=== PATIENT | female | born 1950 | race Caucasian/White ===

== ENCOUNTER 2016-06-13 19:35 | Emergency (ER) | payer OTHER ==
[~2016-06-13] VITALS: Ht 160 cm; Wt 140.6 kg
[2016-06-13] MEDS ORDERED: OXYCODONE/APAP 10/325 TABLET. PO ONE (20:15)
[2016-06-13 21:02] VITALS: BP 129/67
[2016-06-13] MEDS ORDERED: OXYC-323 PO (22:32)
--- NOTE | 2016-06-13 22:32 | PHYS DOC ---
Past Medical History Past Medical History: Arthritis, Diabetes-Type II, High Cholesterol, Hypertension Past Surgical History: Knee Replacement, Tonsillectomy, Tubal ligation Additional Information: 1/2 PACK/DAY Alcohol Use: None Drug Use: None Adult General Chief Complaint Chief Complaint: MECHANICAL FALL HPI HPI Patient is a 65 year old female who presents to the ER today secondary to falling down while she was sitting on the toilet. Patient reports after falling down she was not able to get up on her own was on the ground for approximately 4 hours until family came to help her up. Patient reports this occurred approximately 2:30 PM. Patient denies any trauma to her head. Patient has any loss of consciousness. Patient denies any neck pain or abdominal pain. Patient has any dizziness presyncope or chest pain. She reports that she was on the toilet trying to twist off the toilet and twisted the wrong way and falling down. Patient currently is complaining of left knee pain and left ankle pain and left hip pain. Patient has a history of DJD, right total knee repair, hypertension diabetes and high cholesterol. Patient denies any liver longer kidney problems. Patient has no history of coronary artery disease or strokes in the past. Patient does smoke, no alcohol, no surgeries in the past. Patient is not allergic to any medications. 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 Patient reports just do a lot of walking in the office is requesting time off from work. She denies being on any anticoagulants. Patient's physical exam the ER is significant for tenderness to palpation to her left knee. Tenderness to palpation in her left ankle. Tenderness to palpation to her left hip. Patient has no C-spine T-spine or L-spine tenderness to palpation. Patient has no joint effusion her knees. Patient is morbidly obese. Patient has no tenderness to palpation in her left upper or upper quadrants. Patient is alert awake oriented 3 and appropriate. Patient is ER hospital course is significant for x-rays being obtained of her left knee ankle and hip which were all negative for acute fracture. Patient was given Percocet with some relief in her pain. Patient was offered IM pain medicines however she requested oral pain management. I discussed with the patient the results of her x-rays and she is very comfortable with the plan to be discharged home. Patient is asking for a week off from work secondary to the pain and the amount of walking she needs to do there. Patient will be discharged home in stable condition on Percocet. Patient will be instructed to follow-up with her primary care physician within the week for reevaluation of her symptoms. Review of Systems Review of Systems Constitutional: Denies fever or chills [] Eyes: Denies change in visual acuity, redness, or eye pain [] All other review systems are negative except as documented in the history of present illness portion. Current Medications Current Medications Current Medications Medications (Trade) Dose Ordered Sig/Carlito Start Time Stop Time Status Last Admin Dose Admin Oxycodone/ Acetaminophen (Percocet 10/325) 1 tab 1X ONCE 06/13/16 20:15 06/13/16 20:22 DC 06/13/16 20:24 1 TAB Allergies Allergies Allergies Coded Allergies Type Severity Reaction Last Updated Verified No Known Drug Allergies 06/13/16 No Physical Exam Physical Exam Constitutional: Well developed, well nourished, no acute distress, non-toxic appearance. [] HENT: Normocephalic, atraumatic, bilateral external ears normal, oropharynx moist, no oral exudates, nose normal. [] Eyes: PERRLA, EOMI, conjunctiva normal, no discharge. [] Neck: Normal range of motion, no tenderness, supple, no stridor. [] Cardiovascular:Heart rate regular rhythm, no murmur [] Lungs & Thorax: Bilateral breath sounds clear to auscultation [] Abdomen: Bowel sounds normal, soft, no tenderness, no masses, no pulsatile masses. [] Skin: Warm, dry, no erythema, no rash. [] Back: No tenderness, no CVA tenderness. [] Extremities: See above Neurologic: Alert and oriented X 3, normal motor function, normal sensory function, no focal deficits noted. [] Psychologic: Affect normal, judgement normal, mood normal. [] Current Patient Data Vital Signs Vital Signs Date Time Temp Pulse Resp B/P Pulse Ox O2 Delivery O2 Flow Rate FiO2 06/13/16 20:24 22 06/13/16 19:53 97.8 101 140/90 93 Room Air 97.8 EKG EKG [] Radiology/Procedures Radiology/Procedures [] Course & Med Decision Making Course & Med Decision Making Pertinent Labs and Imaging studies reviewed. (See chart for details) [] Dragon Disclaimer Dragon Disclaimer This electronic medical record was generated, in whole or in part, using a voice recognition dictation system. Departure Departure Impression: Primary Impression: Contusion, hip Additional Impressions: Knee sprain Ankle sprain Fall Disposition: 01 HOME, SELF-CARE Condition: IMPROVED Referrals: CARMEN KAY MD (PCP) Patient Instructions: Ankle Sprain, Contusion, Knee Sprain Scripts Oxycodone/Apap 5-325 (Percocet 5-325 Mg Tablet)1 Each Tablet1 Tab PO Q6-8HRS PRN PAIN #20 TAB Prov:FIDEL OVIEDO MD 06/13/16 Problem Qualifiers FIDEL OVIEDO MD Jun 13, 2016 22:32
--- NOTE | 2016-06-14 08:50 | RAD ---
Pelvis with left hip, 3 views, 06/13/2016: History: Fall, pain No fracture or dislocation is identified. The left hip joint is well preserved. There is mild sclerotic change at the symphysis pubis. Mild degenerative changes are evident in the lower lumbar spine. IMPRESSION: No acute abnormality is detected.
--- NOTE | 2016-06-14 09:01 | RAD ---
Portable left ankle, 3 views, 06/13/2016: History: Injury No acute fracture or dislocation is identified. There are mild degenerative changes at the ankle joint. A small inferior calcaneal spur is noted. There is diffuse subcutaneous edema about the ankle. IMPRESSION: No acute bony abnormality is detected.
--- NOTE | 2016-06-14 09:02 | RAD ---
Portable left knee, 3 views, 06/13/2016: History: Trauma, pain There is narrowing of the knee joint spaces with subchondral sclerosis and moderate marginal spurring. There is extensive spurring at the patellofemoral femoral articulation. There are several periarticular calcifications raising the possibility of loose bodies. No acute fracture or dislocation is identified. IMPRESSION: 1. Moderately severe hypertrophic degenerative change. 2. No acute bony abnormality is detected.
== END 2016-06-13 23:36 | disposition home or self-care (01) ==
LOC: ER 19:35
DX: S83.92XA Sprain of unspecified site of left knee, initial encounter (principal); S93.402A Sprain of unspecified ligament of left ankle, initial encounter; S70.02XA Contusion of left hip, initial encounter; E11.9 Type 2 diabetes mellitus without complications; E66.01 Morbid (severe) obesity due to excess calories; Z68.43 Body mass index [BMI] 50.0-59.9, adult; E78.00 Pure hypercholesterolemia, unspecified; F17.200 Nicotine dependence, unspecified, uncomplicated; I10 Essential (primary) hypertension; M19.90 Unspecified osteoarthritis, unspecified site; Z96.659 Presence of unspecified artificial knee joint; Z98.51 Tubal ligation status; W18.11XA Fall from or off toilet without subsequent striking against object, initial encounter; Y93.89 Activity, other specified; Y92.89 Other specified places as the place of occurrence of the external cause; Y99.8 Other external cause status
CPT/HCPCS: 73502; 73562; 73610; 99284